=== PATIENT | male | born 1950 | race Caucasian/White ===

== ENCOUNTER 2017-07-12 11:40 | Inpatient (IN) | payer MEDICARE, BC ==
[2017-07-12] MEDS ORDERED: Sodium Chloride 0.9% 10 ML Syringe FLUSH PRN (11:47)
[2017-07-12] MEDS ORDERED: Adenosine 6 MG/2 ML SDV IVPUSH ONE (11:48)
[2017-07-12] MEDS ORDERED: Sodium Chloride 0.9% 1,000 ML IV SCH ×2 (12:00→15:15)
[2017-07-12] MEDS ORDERED: Diltiazem 25 MG/5 ML SDV IVPUSH ONE (12:07)
--- NOTE | 2017-07-12 12:07 | EDM.PDOC ---
ED HPI GENERAL MEDICAL PROBLEM - General Chief Complaint: Chest Pain Stated Complaint: HEART NOT RIGHT/RAPID HEART/SOB Time Seen by Provider: 07/12/17 11:45 Source of Information: Reports: Patient, Old Records History Limitations: Reports: No Limitations - History of Present Illness INITIAL COMMENTS - FREE TEXT/NARRATIVE: 66 yo male with a pHx of paroxysmal afib presents with tachycardia that began about 8 pm last night. He has been going in and out of Afib lately, usually resolves on its own. He is on warfarin with a last INR about a month ago. Has not missed any doses. Take metoprolol for rate control. Has minimal CP and SOB. Onset Date: 07/11/17 Onset Time: 20:00 Duration: Hour(s):, Constant Location: Reports: Chest Quality: Reports: Dull Severity: Mild Improves with: Reports: None Worsens with: Reports: None Context: Reports: Other (PHx of paroxysmal afib) Associated Symptoms: Reports: Chest Pain (very mild), Shortness of Breath (mild) . 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 (see below) (his usual meds only, none missed.) Chest Pain Score (Numeric/FACES): 4 - Related Data Allergies Allergy/AdvReac Type Severity Reaction Status Date / Time No Known Allergies Allergy Verified 07/12/17 11:55 Home Meds: Home Meds Furosemide [Furosemide] 40 mg PO BID 02/03/15 [History] Losartan [Cozaar] 100 mg PO DAILY 02/03/15 [History] Metoprolol Succinate [Toprol XL] 75 mg PO DAILY 02/03/15 [History] Sildenafil [Viagra] 100 mg PO ASDIRECTED PRN 02/03/15 [History] Simvastatin [Zocor] 10 mg PO BEDTIME 02/03/15 [History] Tamsulosin [Tamsulosin 24 Hr] 0.4 mg PO DAILY 02/03/15 [History] Warfarin [Coumadin] 5 mg PO DAILY 02/03/15 [History] Past Medical History HEENT History: Reports: Impaired Vision Cardiovascular History: Reports: Afib, High Cholesterol, Hypertension, SOB on Exertion Other Cardiovascular History: Chronic systolic heart failure, peripheral edema Respiratory History: Reports: Sleep Apnea Other Respiratory History: CPAP Gastrointestinal History: Reports: Colon Polyp Genitourinary History: Reports: BPH Musculoskeletal History: Reports: Fracture, Osteoarthritis Endocrine/Metabolic History: Reports: Obesity/BMI 30+ - Infectious Disease History Infectious Disease History: Reports: Chicken Pox, Measles, Mumps - Past Surgical History HEENT Surgical History: Reports: Adenoidectomy, Tonsillectomy Other HEENT Surgeries/Procedures: Adnoids. Other Cardiovascular Surgeries/Procedures: Ablation 01/08/2015 Respiratory Surgical History: Reports: None GI Surgical History: Reports: Colonoscopy Male Surgical History: Reports: None Endocrine Surgical History: Reports: None Social & Family History - Tobacco Use Smoking Status *Q: Former Smoker Packs/Tins Daily: 0.3 Second Hand Smoke Exposure: No - Caffeine Use Caffeine Use: Reports: None - Alcohol Use Days Per Week of Alcohol Use: 0 Number of Drinks Per Day: 3 Total Drinks Per Week: 0 - Recreational Drug Use Recreational Drug Use: No ED ROS GENERAL - Review of Systems Review Of Systems: See Below Constitutional: Reports: No Symptoms HEENT: Reports: No Symptoms Respiratory: Reports: Shortness of Breath (mild now). Denies: Wheezing, Pleuritic Chest Pain, Cough, Sputum, Hemoptysis Cardiovascular: Reports: Palpitations (since last night) Endocrine: Reports: No Symptoms GI/Abdominal: Reports: No Symptoms : Reports: No Symptoms Musculoskeletal: Reports: No Symptoms Skin: Reports: No Symptoms Neurological: Reports: No Symptoms ED EXAM, GENERAL - Physical Exam Exam: See Below Exam Limited By: No Limitations General Appearance: Alert, WD/WN, No Apparent Distress, Obese Eye Exam: Bilateral Eye: Normal Inspection Ears: Normal External Exam, Normal Canal, Hearing Grossly Normal Ear Exam: Bilateral Ear: Auricle Normal, Canal Normal Nose: Normal Inspection, Normal Mucosa, No Blood Throat/Mouth: Normal Inspection, Normal Lips, Normal Oropharynx, Normal Voice, No Airway Compromise Head: Atraumatic, Normocephalic Neck: Normal Inspection, Supple Respiratory/Chest: No Respiratory Distress, Lungs Clear, Normal Breath Sounds, No Accessory Muscle Use Cardiovascular: Regular Rate, Rhythm, No Edema, Tachycardia GI/Abdominal: Normal Bowel Sounds, Soft, Non-Tender, No Distention Back Exam: Normal Inspection Extremities: Normal Inspection, Normal Range of Motion, Non-Tender, No Pedal Edema Neurological: Alert, Oriented, CN II-XII Intact, Normal Cognition, No Motor/ Sensory Deficits Psychiatric: Normal Affect, Normal Mood Skin Exam: Warm, Dry, Intact, Normal Color, No Rash Lymphatic: No Adenopathy EKG INTERPRETATION EKG Date: 07/12/17 Time: 11:45 Rhythm: A-Fib Rate (Beats/Min): 184 [place]: Normal P-Wave: Present QRS: Normal ST-T: Normal QT: Normal Comparison: Change From Previous EKG Course - Vital Signs Text/Narrative:: Was given Adenocard 6 mg IV with transient slowing revealing his underlying current rhythm is afib. Cardizem 25 mg IV given for rate control, this worked well to control the rate. Less than the full 25 mg was given to achieve this rate control. Last Recorded V/S: Last Vital Signs Temp Pulse 183 H 07/12/17 12:23 Resp BP 132/113 H 07/12/17 12:23 Pulse Ox - Orders/Labs/Meds Orders: Active Orders 24 hr Category Date Time Status Cardiac Monitoring [RC] .As Directed Care 07/12/17 11:46 Active EKG Documentation Completion [RC] ASDIRECTED Care 07/12/17 11:43 Active Oxygen Therapy Adult [Oxygen Therapy, ED] [RC] Care 07/12/17 11:48 Active ASDIRECTED BASIC METABOLIC PANEL,BMP [CHEM] Stat Lab 07/12/17 12:01 Received TROPONIN I [CHEM] Stat Lab 07/12/17 12:01 Received Sodium Chloride 0.9% [Normal Saline] 1,000 ml Med 07/12/17 12:00 Active IV ASDIRECTED Sodium Chloride 0.9% [Saline Flush] Med 07/12/17 11:47 Active 10 ml FLUSH ASDIRECTED PRN Saline Lock Insert [OM.PC] Routine Oth 07/12/17 11:47 Ordered EKG 12 Lead [EK] Routine Ther 07/12/17 11:43 Ordered Medication Orders Sodium Chloride (Normal Saline) 1,000 mls @ 100 mls/hr IV ASDIRECTED BONILLA Last Admin: 07/12/17 12:10 Dose: 100 mls/hr Sodium Chloride (Saline Flush) 10 ml FLUSH ASDIRECTED PRN PRN Reason: Keep Vein Open Labs: Laboratory Tests 07/12/17 07/12/17 Range/Units 12:01 12:01 WBC 13.0 H (4.5-11.0) K/uL RBC 5.15 (4.30-5.90) M/uL Hgb 16.5 H (12.0-15.0) g/dL Hct 48.5 (40.0-54.0) % MCV 94 (80-98) fL MCH 32 H (27-31) pg MCHC 34 (32-36) % Plt Count 333 (150-400) K/uL PT 33.3 H (9.5-12.0) sec INR 2.97 H (0.80-1.20) Meds: Medications Generic Name Dose Route Start Last Admin Trade Name Freq PRN Reason Stop Dose Admin Sodium Chloride 1,000 mls @ 100 mls/hr 07/12/17 12:00 07/12/17 12:10 Normal Saline IV 100 mls/hr ASDIRECTED BONILLA Administration Sodium Chloride 10 ml 07/12/17 11:47 Saline Flush FLUSH ASDIRECTED PRN Keep Vein Open Discontinued Medications Generic Name Dose Route Start Last Admin Trade Name Freq PRN Reason Stop Dose Admin Adenosine 6 mg 07/12/17 11:48 07/12/17 12:12 Adenocard IVPUSH 07/12/17 11:49 6 mg NOW ONE Administration Diltiazem HCl 25 mg 07/12/17 12:07 07/12/17 12:23 Diltiazem IVPUSH 07/12/17 12:08 25 mg ONETIME ONE Administration Departure - Departure Time of Disposition: 12:50 Disposition: Admitted As Inpatient 65 Condition: Fair Clinical Impression: Atrial fibrillation with RVR Referrals: Rob Leal MD [Primary Care Provider] - Forms: ED Department Discharge - My Orders Last 24 Hours: My Active Orders 07/12/17 11:43 EKG Documentation Completion [RC] ASDIRECTED EKG 12 Lead [EK] Routine 07/12/17 11:46 Cardiac Monitoring [RC] .As Directed 07/12/17 11:47 Sodium Chloride 0.9% [Saline Flush] 10 ml FLUSH ASDIRECTED PRN Saline Lock Insert [OM.PC] Routine 07/12/17 11:48 Oxygen Therapy Adult [Oxygen Therapy, ED] [RC] ASDIRECTED 07/12/17 12:00 Sodium Chloride 0.9% [Normal Saline] 1,000 ml IV ASDIRECTED 07/12/17 12:01 BASIC METABOLIC PANEL,BMP [CHEM] Stat TROPONIN I [CHEM] Stat - Assessment/Plan Last 24 Hours: My Active Orders 07/12/17 11:43 EKG Documentation Completion [RC] ASDIRECTED EKG 12 Lead [EK] Routine 07/12/17 11:46 Cardiac Monitoring [RC] .As Directed 07/12/17 11:47 Sodium Chloride 0.9% [Saline Flush] 10 ml FLUSH ASDIRECTED PRN Saline Lock Insert [OM.PC] Routine 07/12/17 11:48 Oxygen Therapy Adult [Oxygen Therapy, ED] [RC] ASDIRECTED 07/12/17 12:00 Sodium Chloride 0.9% [Normal Saline] 1,000 ml IV ASDIRECTED 07/12/17 12:01 BASIC METABOLIC PANEL,BMP [CHEM] Stat TROPONIN I [CHEM] Stat
[2017-07-12] MEDS: Diltiazem 100 MG in Sodium Chloride 0.9% 100 ML IV SCH (12:50)
--- NOTE | 2017-07-12 14:40 | PCM.HP ---
H&P History of Present Illness - General Date of Service: 07/12/17 Admit Problem/Dx: Admission Diagnosis/Problem Admission Diagnosis/Problem Atrial fibrillation with rapid ventricular response Source of Information: Patient, Provider History Limitations: Reports: No Limitations - History of Present Illness Initial Comments - Free Text/Narative: Casimiro presents to the emergency room today with palpitations. He reports that he has not felt well for the past week or so with some fatigue but no real specific symptoms. He has not had any chest pain or chest tightness. Last night he felt like his heart was racing and noticed palpitations. He otherwise felt okay so he did not seek treatment last night. He was able to sleep but when he woke up this morning the palpitations persisted. This morning he also noted some diaphoresis and he was short of breath with any activity. He did not have any chest pain or tightness this morning. He has not had any fevers. He has not noticed any lower extremity edema. He reports compliance with medications and his C Pap therapy for obstructive sleep apnea. His weight has been stable. Workup in the emergency room revealed atrial fibrillation with rapid ventricular response and a rate in the 180s initially. His rate has been slowed using diltiazem. Laboratory studies revealed acute kidney injury with a creatinine of 1.8 as well as a troponin of 0.7. He will be admitted to the intensive care unit for further management. Chest Pain Score (Numeric/FACES): 0 - Related Data Allergies/Adverse Reactions: Allergies Allergy/AdvReac Type Severity Reaction Status Date / Time No Known Allergies Allergy Verified 07/12/17 11:55 Home Medications: Home Meds Furosemide [Furosemide] 40 mg PO BID 02/03/15 [History] Losartan [Cozaar] 100 mg PO DAILY 02/03/15 [History] Metoprolol Succinate [Toprol XL] 75 mg PO DAILY 02/03/15 [History] Sildenafil [Viagra] 100 mg PO ASDIRECTED PRN 02/03/15 [History] Simvastatin [Zocor] 10 mg PO BEDTIME 02/03/15 [History] Tamsulosin [Tamsulosin 24 Hr] 0.4 mg PO DAILY 02/03/15 [History] Warfarin [Coumadin] 5 mg PO DAILY 02/03/15 [History] Past Medical History HEENT History: Reports: Impaired Vision Cardiovascular History: Reports: Afib, High Cholesterol, Hypertension, SOB on Exertion Other Cardiovascular History: Chronic systolic heart failure, peripheral edema Respiratory History: Reports: Sleep Apnea Other Respiratory History: CPAP Gastrointestinal History: Reports: Colon Polyp Genitourinary History: Reports: BPH Musculoskeletal History: Reports: Fracture, Osteoarthritis Endocrine/Metabolic History: Reports: Obesity/BMI 30+ - Infectious Disease History Infectious Disease History: Reports: Chicken Pox, Measles, Mumps - Past Surgical History HEENT Surgical History: Reports: Adenoidectomy, Tonsillectomy Other HEENT Surgeries/Procedures: Adnoids. Other Cardiovascular Surgeries/Procedures: Ablation 01/08/2015 Respiratory Surgical History: Reports: None GI Surgical History: Reports: Colonoscopy Male Surgical History: Reports: None Endocrine Surgical History: Reports: None Social & Family History - Family History Cardiac: Reports: CAD (brother at 79) - Tobacco Use Smoking Status *Q: Never Smoker Packs/Tins Daily: 0.3 Second Hand Smoke Exposure: No - Caffeine Use Caffeine Use: Reports: Coffee, Soda, Tea - Alcohol Use Days Per Week of Alcohol Use: 0 Number of Drinks Per Day: 3 Total Drinks Per Week: 0 - Recreational Drug Use Recreational Drug Use: No H&P Review of Systems - Review of Systems: Review Of Systems: See Below Free Text/Narrative: A complete 12 point review of systems was obtained. Pertinent positives and negatives are noted in the history of present illness. All other systems were reviewed and were negative except as noted. Exam - Exam Exam: See Below - Vital Signs Vital Signs: Last Vital Signs Temp Pulse 94 07/12/17 14:17 Resp 22 H 07/12/17 14:17 BP 125/82 07/12/17 14:17 Pulse Ox 95 07/12/17 14:17 Weight: 136.4 kg - Exam Quality Assessment: No: Supplemental Oxygen General: Alert, Oriented, Cooperative. No: Mild Distress HEENT: Conjunctiva Clear, Mucosa Moist & [place]. No: Scleral Icterus Neck: Supple, Trachea Midline. No: Lymphadenopathy, Thyromegaly Lungs: Clear to Auscultation, Normal Respiratory Effort Cardiovascular: Regular Rate, Irregular Rhythm GI/Abdominal Exam: Soft, Non-Tender, No Distention, Other (obese) Back Exam: Normal Inspection, Full Range of Motion Extremities: No Pedal Edema. No: Joint Swelling, Increased Warmth Skin: Warm, Dry. No: Rash Neuro Extensive - Mental Status: Alert, Oriented x3, Nl Response to Commands Neuro Extensive - Motor, Sensory, Reflexes: CN II-XII Intact. No: Dysarthria, Abnormal Motor, Tremor Psychiatric: Alert, Normal Affect - Patient Data Lab Results Last 24 hrs: Laboratory Results - last 24 hr 07/12/17 07/12/17 07/12/17 Range/Units 12:01 12:01 12:01 WBC 13.0 H (4.5-11.0) K/uL RBC 5.15 (4.30-5.90) M/uL Hgb 16.5 H (12.0-15.0) g/dL Hct 48.5 (40.0-54.0) % MCV 94 (80-98) fL MCH 32 H (27-31) pg MCHC 34 (32-36) % Plt Count 333 (150-400) K/uL PT 33.3 H (9.5-12.0) sec INR 2.97 H (0.80-1.20) Sodium 141 (140-148) mmol/L Potassium 3.5 L (3.6-5.2) mmol/L Chloride 106 (100-108) mmol/L Carbon Dioxide 19 L (21-32) mmol/L Anion Gap 19.5 H (5.0-14.0) mmol/L BUN 28 H (7-18) mg/dL Creatinine 1.8 H (0.8-1.3) mg/dL Est Cr Clr Drug Dosing TNP Estimated GFR (MDRD) 38 L (>60) Glucose 191 H (74-106) mg/dL Calcium 8.7 (8.5-10.1) mg/dL Troponin I 0.763 H* (0.000-0.056) ng/mL Result Diagrams: 07/12/17 12:01 07/12/17 12:01 EKG INTERPRETATION EKG Date: 07/12/17 Rhythm: Other (SVT) Rate (Beats/Min): 185 [place]: Normal P-Wave: Absent QRS: Normal ST-T: Depressed QT: Normal Comparison: Change From Previous EKG EKG Interpretation Comments: images were personally reviewed *Q Meaningful Use (ADM) - VTE *Q VTE Criteria *Q: - VTE Risk Assess *Q Each Risk Factor Represents 1 Point: Obesity ( BMI > 25 kg/m2), Congestive heart failure (CHF) Total Score 1 Point Risk Factors: 2 Each Risk Factor Represents 2 Points: Age 60 - 74 Years Total Score 2 Point Risk Factors: 2 Each Risk Factor Represents 3 Points: None Total Score 3 Point Risk Factors: 0 Each Risk Factor Represents 5 Points: None Total Score 5 Point Risk Factors: 0 Venous Thromboembolism Risk Factor Score *Q: 4 - Stroke *Q Stroke Criteria *Q: - AMI *Q AMI Criteria *Q: - Problem List (1) Atrial fibrillation with RVR SNOMED Code(s): 638547324342327 ICD Code: I48.91 - UNSPECIFIED ATRIAL FIBRILLATION Status: Acute Current Visit: Yes (2) Elevated troponin SNOMED Code(s): 693971309 ICD Code: R74.8 - ABNORMAL LEVELS OF OTHER SERUM ENZYMES Status: Acute Current Visit: Yes (3) Acute kidney injury SNOMED Code(s): 22524257 ICD Code: N17.9 - ACUTE KIDNEY FAILURE, UNSPECIFIED Status: Acute Current Visit: Yes (4) Systolic CHF, chronic SNOMED Code(s): 311875817 ICD Code: I50.22 - CHRONIC SYSTOLIC (CONGESTIVE) HEART FAILURE Status: Chronic Current Visit: Yes (5) MELISSA (obstructive sleep apnea) SNOMED Code(s): 01103669 ICD Code: G47.33 - OBSTRUCTIVE SLEEP APNEA (ADULT) (PEDIATRIC) Status: Chronic Current Visit: Yes (6) Obesity, morbid, BMI 40.0-49.9 SNOMED Code(s): 082898530 ICD Code: E66.01 - MORBID (SEVERE) OBESITY DUE TO EXCESS CALORIES Status: Chronic Current Visit: Yes Problem List Initiated/Reviewed/Updated: Yes Orders Last 24hrs: Active Orders 24 hr Category Date Time Status Patient Status Manage Transfer [TRANSFER] Routine ADT 07/12/17 14:28 Ordered Cardiac Monitoring [RC] .As Directed Care 07/12/17 11:46 Active EKG Documentation Completion [RC] ASDIRECTED Care 07/12/17 11:43 Active EKG Documentation Completion [RC] ASDIRECTED Care 07/12/17 13:57 Active Oxygen Therapy Adult [Oxygen Therapy, ED] [RC] Care 07/12/17 11:48 Active ASDIRECTED Diltiazem [Cardizem] 100 mg Med 07/12/17 12:45 Active Sodium Chloride 0.9% [Normal Saline] 100 ml IV TITRATE Sodium Chloride 0.9% [Normal Saline] 1,000 ml Med 07/12/17 12:00 Active IV ASDIRECTED Sodium Chloride 0.9% [Saline Flush] Med 07/12/17 11:47 Active 10 ml FLUSH ASDIRECTED PRN Saline Lock Insert [OM.PC] Routine Oth 07/12/17 11:47 Ordered Resuscitation Status Routine Resus Stat 07/12/17 14:30 Ordered EKG 12 Lead [EK] Routine Ther 07/12/17 11:43 Ordered EKG 12 Lead [EK] Routine Ther 07/12/17 13:56 Ordered Medication Orders Sodium Chloride (Normal Saline) 1,000 mls @ 100 mls/hr IV ASDIRECTED BONILLA Last Admin: 07/12/17 12:10 Dose: 100 mls/hr Diltiazem HCl 100 mg/ Sodium (Chloride) 100 mls @ 5 mls/hr IV TITRATE BONILLA; 5 MG /HR PRN Reason: Protocol Last Admin: 07/12/17 12:50 Dose: 5 mg/hr, 5 mls/hr Sodium Chloride (Saline Flush) 10 ml FLUSH ASDIRECTED PRN PRN Reason: Keep Vein Open Last Admin: 07/12/17 13:52 Dose: 10 ml Assessment/Plan Comment:: ASSESSMENT AND PLAN - Paroxysmal atrial fibrillation with rapid ventricular response - history of ablation approximately 1.5 years ago. It sounds like he may have had stuttering symptoms over the past week with more impressive symptoms last night. He is chronically anticoagulated and his INR is therapeutic. Rate has slowed with diltiazem infusion. Exact cause for the atrial fibrillation exacerbation is not entirely clear though there is some concern for ischemic heart disease with elevated troponin level as discussed below. -Continue diltiazem infusion -Cardiac monitoring -Continue metoprolol succinate -Continue anticoagulation Elevated troponin - when coupled with his acute kidney injury this could be a demand ischemia-type picture though the level is elevated higher than would expect. He does not have any chest pain or anginal symptoms. EKG shows nonspecific T-wave changes but no elevations or depressions. Case was discussed with the on-call master deputy sheriff court security in [place] and they recommended serial troponins as well as stress testing. -Serial troponin levels -Stress test in the morning -continue beta segundo -aspirin Acute kidney injury - creatinine currently 1.8 with baseline of 1.0. Exact cause for decreased function is not clear but poor perfusion in the setting of tachycardia could be considered. -Repeat labs tomorrow after rate slowing Obstructive sleep apnea - patient reports compliance to CPAP. -Continue C Pap Maintenance issues - - DVT prophylaxis - warfarin - GI prophylaxis - not indicated - Nutrition - heart healthy diet - Vill[place] catheter - not indicated CODE STATUS - patient wishes to be full code at this time Admission justification - This patient will be admitted for inpatient services and is medically appropriate meeting medical necessity for inpatient admission as outlined in my documentation. I reasonably expect the patient will require inpatient services that span a period time over 2 midnights. I reasonably expect this patient to be discharged or transferred within 96 hours [facility]. Disposition - anticipate discharge to home after the hospital stay unless he requires transfer to a higher level of care Primary care physician - Dr. Elvis Ruffin M.D.
[2017-07-12] MEDS ORDERED: Acetaminophen 325 MG Tab PO PRN (15:15)
[2017-07-12] MEDS ORDERED: Ondansetron 4 MG Tab.DIS PO PRN (15:15)
[2017-07-12] MEDS ORDERED: Aspirin 81 MG Tab.Chew PO ONE (15:45)
[2017-07-12] MEDS: Magnesium Sulfate/Water 2 GM in Premix Bag 1 BAG IV SCH ×2 (16:10→21:02)
[2017-07-12] MEDS: Simvastatin 20 MG Tab PO SCH (21:01)
[2017-07-13] MEDS: Diltiazem 100 MG in Sodium Chloride 0.9% 100 ML IV SCH ×2 (07:19→17:24)
[2017-07-13] MEDS: Aspirin 81 MG Tab.Chew PO SCH (10:45)
[2017-07-13] MEDS: Losartan 50 MG Tab PO SCH (10:45)
[2017-07-13] MEDS: Tamsulosin 0.4 MG Cap.ER PO SCH (10:45)
[2017-07-13] MEDS: Metoprolol Succinate 25 MG Tab.ER PO SCH (10:46)
--- NOTE | 2017-07-13 12:47 | NM ---
Myocardial Perf Spect Multi INDICATION: elevated troponin COMPARISON: None. TECHNIQUE: [employer] [facility] medicine Cardiolite scan was performed utilizing 36.0 millicuries uptake technetium 99m sestamibi at stress and 13.1 millicuries of technetium 99m at rest. FINDINGS: The left ventricular myocardium demonstrates homogeneous radiotracer uptake. Wall motion st udies are within normal limits. Calculated left ventricular ejection fraction measures 76% at stress and 69% at rest. IMPRESSION: 1. Normal Cardiolite study.
[2017-07-13] MEDS: Warfarin 5 MG Tab PO SCH (13:37)
--- NOTE | 2017-07-13 15:36 | PCM.PN ---
- General Info Date of Service: 07/13/17 Functional Status: Reports: Pain Controlled, Tolerating Diet - Review of Systems Cardiovascular: Denies: Chest Pain Systems Review Comment:: no acute events overnight. Patient has remained in atrial fibrillation but heart rate has been controlled in the 90s. No complaints of chest pain or shortness of breath overnight. No fevers. He did have an episode this morning where his heart rate shot up to greater than 180 while he was up and moving around. This responded well to sitting back down. Stress test this morning was normal. - Patient Data Vitals - Most Recent: Last Vital Signs Temp 36.6 C 07/13/17 07:32 Pulse 96 07/13/17 15:00 Resp 24 H 07/13/17 15:00 BP 150/26 H 07/13/17 15:00 Pulse Ox 91 L 07/13/17 15:00 Weight - Most Recent: 136.4 kg I&O - Last 24 Hours: Intake & Output 07/13/17 07/13/17 07/13/17 06:59 14:59 22:59 Intake Total 863 720 Output Total 450 150 Balance 413 570 Lab Results Last 24 Hours: Laboratory Results - last 24 hr 07/12/17 07/12/17 07/13/17 Range/Units 16:00 19:02 04:40 WBC 10.1 (4.5-11.0) K/uL RBC 4.62 (4.30-5.90) M/uL Hgb 14.6 (12.0-15.0) g/dL Hct 43.7 (40.0-54.0) % MCV 95 (80-98) fL MCH 32 H (27-31) pg MCHC 33 (32-36) % Plt Count 222 (150-400) K/uL PT (9.5-12.0) sec INR (0.80-1.20) Sodium (140-148) mmol/L Potassium (3.6-5.2) mmol/L Chloride (100-108) mmol/L Carbon Dioxide (21-32) mmol/L Anion Gap (5.0-14.0) mmol/L BUN (7-18) mg/dL Creatinine (0.8-1.3) mg/dL Est Cr Clr Drug Dosing mL/min Estimated GFR (MDRD) (>60) Glucose (74-106) mg/dL Calcium (8.5-10.1) mg/dL Troponin I 0.792 H* 1.012 H* (0.000-0.056) ng/mL 07/13/17 07/13/17 Range/Units 04:40 04:40 WBC (4.5-11.0) K/uL RBC (4.30-5.90) M/uL Hgb (12.0-15.0) g/dL Hct (40.0-54.0) % MCV (80-98) fL MCH (27-31) pg MCHC (32-36) % Plt Count (150-400) K/uL PT 32.0 H (9.5-12.0) sec INR 2.86 H (0.80-1.20) Sodium 140 (140-148) mmol/L Potassium 3.2 L (3.6-5.2) mmol/L Chloride 105 (100-108) mmol/L Carbon Dioxide 25 (21-32) mmol/L Anion Gap 13.2 (5.0-14.0) mmol/L BUN 25 H (7-18) mg/dL Creatinine 1.2 (0.8-1.3) mg/dL Est Cr Clr Drug Dosing 57.79 mL/min Estimated GFR (MDRD) > 60 (>60) Glucose 146 H (74-106) mg/dL Calcium 8.6 (8.5-10.1) mg/dL Troponin I 0.799 H* (0.000-0.056) ng/mL Med Orders - Current: Current Medications Acetaminophen (Tylenol) 650 mg PO Q4H PRN PRN Reason: Pain (Mild 1-3)/fever Aspirin (Aspirin) 81 mg PO DAILY [facility] Last Admin: 07/13/17 10:45 Dose: 81 mg Diltiazem HCl 100 mg/ Sodium (Chloride) 100 mls @ 5 mls/hr IV TITRATE [facility]; 5 MG /HR PRN Reason: Protocol Last Titration: 07/13/17 08:26 Dose: 10 mg/hr, 10 mls/hr Sodium Chloride (Normal Saline) 1,000 mls @ 25 mls/hr IV ASDIRECTED [facility] Losartan Potassium (Cozaar) 100 mg PO DAILY [facility] Last Admin: 07/13/17 10:45 Dose: 100 mg Metoprolol Succinate (Toprol Xl) 75 mg PO DAILY [facility] Last Admin: 07/13/17 10:46 Dose: 75 mg Ondansetron HCl (Zofran Odt) 4 mg PO Q6H PRN PRN Reason: Nausea able to take PO Simvastatin (Zocor) 10 mg PO BEDTIME [facility] Last Admin: 07/12/17 21:01 Dose: 10 mg Sodium Chloride (Saline Flush) 10 ml FLUSH ASDIRECTED PRN PRN Reason: Keep Vein Open Last Admin: 07/12/17 13:52 Dose: 10 ml Tamsulosin HCl (Flomax) 0.4 mg PO DAILY [facility] Last Admin: 07/13/17 10:45 Dose: 0.4 mg Warfarin Sodium (Coumadin) 5 mg PO DAILY@1300 [facility] Last Admin: 07/13/17 13:37 Dose: 5 mg Discontinued Medications Adenosine (Adenocard) 6 mg IVPUSH NOW ONE Stop: 07/12/17 11:49 Last Admin: 07/12/17 12:12 Dose: 6 mg Aspirin (Aspirin) 324 mg PO ONETIME ONE Stop: 07/12/17 15:46 Last Admin: 07/12/17 16:10 Dose: 324 mg Diltiazem HCl (Diltiazem) 25 mg IVPUSH ONETIME ONE Stop: 07/12/17 12:08 Last Admin: 07/12/17 12:23 Dose: 10 mg Sodium Chloride (Normal Saline) 1,000 mls @ 100 mls/hr IV ASDIRECTED [facility] Last Admin: 07/12/17 12:10 Dose: 100 mls/hr Magnesium Sulfate 2 gm/ Premix 50 mls @ 12.5 mls/hr IV Q6H [facility] Stop: 07/13/17 01:59 Last Admin: 07/12/17 21:02 Dose: 12.5 mls/hr Regadenoson (Lexiscan) 0.4 mg IVPUSH ONETIME ONE Stop: 07/13/17 09:40 Last Admin: 07/13/17 09:51 Dose: 0.4 mg - Exam Quality Assessment: No: Supplemental Oxygen General: Alert, Oriented, Cooperative, No Acute Distress Neck: Supple Lungs: Normal Respiratory Effort Cardiovascular: Regular Rate, Irregular Rhythm Extremities: No Pedal Edema Psy/Mental Status: Alert, Normal Affect - Problem List & Annotations (1) Atrial fibrillation with RVR SNOMED Code(s): 849094934267548 Code(s): I48.91 - UNSPECIFIED ATRIAL FIBRILLATION Status: Acute Current Visit: Yes (2) Elevated troponin SNOMED Code(s): 640354303 Code(s): R74.8 - ABNORMAL LEVELS OF OTHER SERUM ENZYMES Status: Acute Current Visit: Yes (3) Acute kidney injury SNOMED Code(s): 45156052 Code(s): N17.9 - ACUTE KIDNEY FAILURE, UNSPECIFIED Status: Acute Current Visit: Yes (4) Systolic CHF, chronic SNOMED Code(s): 101476847 Code(s): I50.22 - CHRONIC SYSTOLIC (CONGESTIVE) HEART FAILURE Status: Chronic Current Visit: No (5) MELISSA (obstructive sleep apnea) SNOMED Code(s): 40350229 Code(s): G47.33 - OBSTRUCTIVE SLEEP APNEA (ADULT) (PEDIATRIC) Status: Chronic Current Visit: No (6) Obesity, morbid, BMI 40.0-49.9 SNOMED Code(s): 425104343 Code(s): E66.01 - MORBID (SEVERE) OBESITY DUE TO EXCESS CALORIES Status: Chronic Current Visit: No - Problem List Review Problem List Initiated/Reviewed/Updated: Yes - My Orders Last 24 Hours: My Active Orders 07/12/17 15:15 Patient Status [ADT] Routine Bedrest Bedside Commode [RC] ASDIRECTED Cardiac Monitoring [RC] Q6H Intake and Output [RC] QSHIFT Notify Provider Vital Signs [RC] ASDIRECTED Oxygen Therapy [RC] .PRN VTE/DVT Education [RC] Per Unit Routine Vital Signs [RC] Q2H Acetaminophen [Tylenol] 650 mg PO Q4H PRN Ondansetron [Zofran ODT] 4 mg PO Q6H PRN Sodium Chloride 0.9% [Normal Saline] 1,000 ml IV ASDIRECTED 07/12/17 Dinner Heart Healthy Diet [DIET] 07/13/17 07:00 Echo Comp wo Cont [US] Routine 07/13/17 08:18 EKG Documentation Completion [RC] ASDIRECTED EKG 12 Lead [EK] Urgent 07/13/17 09:00 Aspirin 81 mg PO DAILY 07/13/17 15:32 Potassium Chloride [Klor-Con M20] 40 meq PO ONETIME ONE 07/14/17 05:00 BASIC METABOLIC PANEL,BMP [CHEM] Timed TROPONIN I [CHEM] Timed 07/14/17 Breakfast NPO After Midnight [Nothing per Oral After Midnight Diet] [DIET] - Plan Plan:: ASSESSMENT AND PLAN - Paroxysmal atrial fibrillation with rapid ventricular response - stress test normal. Volume status appears appropriate. Echocardiogram difficult to interpret with poor image quality. No obvious trigger for his atrial fibrillation. -Continue diltiazem infusion, titrate as needed -Cardiac monitoring -Continue metoprolol succinate -Continue anticoagulation -plan for cardioversion in the morning Elevated troponin - likely demand ischemia with significant tachycardia. Stress test unremarkable. -repeat troponin in the morning -continue beta segundo -aspirin Acute kidney injury - kidney function improving with rate slowing alone and is nearly back to baseline. -Repeat labs tomorrow morning Obstructive sleep apnea - patient reports compliance to CPAP. -Continue C Pap Maintenance issues - - DVT prophylaxis - warfarin - GI prophylaxis - not indicated - Nutrition - heart healthy diet Disposition - anticipate discharge to home after the hospital stay Primary care physician - Dr. Elvis Ruffin M.D.
[2017-07-13] MEDS ORDERED: Potassium Chloride 20 MEQ Tab.ER PO ONE (16:00)
[2017-07-13] MEDS: Simvastatin 20 MG Tab PO SCH (20:34)
[2017-07-14] MEDS: Diltiazem 100 MG in Sodium Chloride 0.9% 100 ML IV SCH ×2 (00:46→07:53)
[2017-07-14] MEDS: Losartan 50 MG Tab PO SCH (08:25)
[2017-07-14] MEDS: Aspirin 81 MG Tab.Chew PO SCH (08:25)
[2017-07-14] MEDS: Tamsulosin 0.4 MG Cap.ER PO SCH (08:27)
[2017-07-14] MEDS: Metoprolol Succinate 25 MG Tab.ER PO SCH (08:27)
[2017-07-14] MEDS ORDERED: Propofol 200 MG/20 ML SDV ONE (09:55)
--- NOTE | 2017-07-14 10:53 | PCM.PRNOTE ---
- Free Text/Narrative Note: Date of service: 07/14/2017 Proposed procedure: synchronized cardioversion Preprocedure diagnosis: paroxysmal atrial fibrillation Post procedure diagnosis: paroxysmal atrial fibrillation Indication for procedure: Casimiro was evaluated today for management atrial fibrillation with rapid ventricular response. Synchronized cardioversion was recommended as a primary treatment. Description of the procedure: Casimiro is currently located in ICU room 124. We have reviewed the potential risks of electrical cardioversion including but not limited to: Superficial skin meza, ineffective treatment, other arrhythmias, reaction to anesthesia medications or potentially asystole. The benefits of the procedure have also been reviewed. At this time the patient wishes to proceed with electrical cardioversion. All necessary pre-procedure information and paperwork has been provided and completed, respectively. The patient was connected to cardioversion pads and monitoring equipment per protocol. Prior to the procedure, a timeout was held with nursing and anesthesia present to confirm the right patient and right procedure. Once appropriate anesthesia was applied the machine was charged to 200 Joules and a synchronized electrical shock was applied. The patient was successfully converted to normal sinus rhythm based on telemetry monitoring. Casimiro will remain in the intensive care unit for the next several hours to ensure that he remains in sinus rhythm. Anticoagulation should be continued for at least one month post cardioversion. There were no immediate complications noted from the procedure. Post procedure EKG is pending at the time of dictation. Bimal Ruffin M.D.
[2017-07-14] MEDS: Warfarin 5 MG Tab PO SCH (13:19)
--- NOTE | 2017-07-14 14:56 | PCM.DCSUM1 ---
Discharge Summary - Hospital Course Brief History: 66-year-old male with history of sleep apnea and paroxysmal atrial fibrillation who presented with both dictations and dyspnea. Workup in the emergency room revealed atrial fibrillation with rapid ventricular response and a mildly elevated troponin. He was admitted for further workup and management. - Discharge Data Discharge Date: 07/14/17 Discharge Disposition: Home, Self-Care 01 Condition: Good - Discharge Diagnosis/Problem(s) (1) Atrial fibrillation with RVR SNOMED Code(s): 443335493394566 ICD Code: I48.91 - UNSPECIFIED ATRIAL FIBRILLATION Status: Acute (2) Elevated troponin SNOMED Code(s): 289421560, 411751717 ICD Code: R74.8 - ABNORMAL LEVELS OF OTHER SERUM ENZYMES Status: Acute (3) Acute kidney injury SNOMED Code(s): 00272750 ICD Code: N17.9 - ACUTE KIDNEY FAILURE, UNSPECIFIED Status: Acute (4) Systolic CHF, chronic SNOMED Code(s): 295267118 ICD Code: I50.22 - CHRONIC SYSTOLIC (CONGESTIVE) HEART FAILURE Status: Chronic (5) MELISSA (obstructive sleep apnea) SNOMED Code(s): 57751791 ICD Code: G47.33 - OBSTRUCTIVE SLEEP APNEA (ADULT) (PEDIATRIC) Status: Chronic (6) Obesity, morbid, BMI 40.0-49.9 SNOMED Code(s): 970153737 ICD Code: E66.01 - MORBID (SEVERE) OBESITY DUE TO EXCESS CALORIES Status: Chronic - Patient Summary/Data Operative Procedure(s) Performed: Synchronized cardioversion by Dr. Ruffin [facility] Course: Casimiro presented to the emergency room with palpitations and dyspnea. Workup in the emergency room revealed a significant tachycardia that initially appeared to be regular SVT but after injection of adenosine atrial fibrillation was revealed. Heart rate did slow down with diltiazem and he was started on a diltiazem infusion in the emergency room. Laboratory workup revealed an acute kidney injury with creatinine of 1.8 and a baseline of 1. He also had a troponin of 0.7. His care was discussed with the clipping marker in [place] and they recommended serial troponin levels, atrial fibrillation management and a stress test prior to transfer for any sort of percutaneous intervention. Overnight he remained stable on the diltiazem infusion with excellent rate control and stable blood pressures. He did not have any symptoms of chest pain or chest pressure in the emergency room or overnight. His second troponin level was stable at around 0.7 and then juan r to 1 before declining in the morning after admission. The morning after admission he remained symptom-free and stable so we elected to perform a Karolyn scan stress test. Both the EKG and the nuclear medicine portions of the test were unremarkable for ischemia. After the stress test was completed we discussed potential management options including rate control versus rhythm control. We did also obtain an echocardiogram which was difficult to interpret because of his body habitus but appeared to have a normal ejection fraction. No significant valvular abnormalities were noted though again the images were not of good quality. After further discussion we elected to proceed with cardioversion and an attempt at rhythm control because no strong cause for his atrial fibrillation was identified. He had been compliant with this CPAP. I suspect that his troponin elevation though moderate in quantity was probably a result of his tachycardia that had persisted for more than 12 hours. On the morning of discharge he had a synchronized cardioversion with a single shock and returned to a sinus rhythm. He has remained in that sinus rhythm throughout the course of the day. I have elected to send him home with a small dose of diltiazem to see if we can avoid future difficulties of this paroxysmal atrial fibrillation. He would benefit from early clinic follow-up and potentially a visit to the cl[facility] after hospital discharge. He is chronically anticoagulated and his INR has been therapeutic. He will continue his anti-coagulation after hospital discharge. - Patient Instructions Diet: Heart Healthy Diet Activity: As Tolerated, No Strenuous Activities (relax over the weekend) Showering/Bathing: May Shower Notify Provider of: Fever, Increased Pain, Nausea and/or Vomiting Other/Special Instructions: 1. You were in the hospital for management of atrial fibrillation with a rapid ventricular response. Your heart rate was slowed down using medication and then returned to a normal sinus rhythm using electrical cardioversion. We did perform a stress test to look for evidence that you had coronary artery blockages because of your elevated troponin level. Fortunately the stress test did not show evidence for blockage. I recommend that you continue to take a low dose of diltiazem once daily to help reduce the risk of having a recurrence of the atrial fibrillation. 2. Please continue your other medications as previously prescribed. 3. Follow-up with the Coumadin clinic as previously scheduled. 4. Seek medical attention if you develop sudden onset of shortness of breath, palpitations or chest pain/ pressure. - Discharge Plan Prescriptions/Med Rec: Diltiazem HCl [Diltiazem 24Hr Cd] 120 mg PO DAILY #30 cap.er.24h Home Medications: Home Meds Furosemide 40 mg PO BID 02/03/15 [History] Losartan [Cozaar] 100 mg PO DAILY 02/03/15 [History] Metoprolol Succinate [Toprol XL] 75 mg PO DAILY 02/03/15 [History] Sildenafil [Viagra] 100 mg PO ASDIRECTED PRN 02/03/15 [History] Simvastatin [Zocor] 10 mg PO BEDTIME 02/03/15 [History] Tamsulosin [Flomax] 0.4 mg PO DAILY 02/03/15 [History] Warfarin [Coumadin] 5 mg PO DAILY 02/03/15 [History] Diltiazem HCl [Diltiazem 24Hr Cd] 120 mg PO DAILY #30 cap.er.24h 07/14/17 [Rx] Patient Handouts: Diltiazem extended-release capsules or tablets, Atrial Fibrillation Referrals: Rob Leal MD [Primary Care Provider] - (f/u as needed if symptoms return or do not continue to get better) - Discharge Summary/Plan Comment DC Time >30 min.: No (25) - Patient Data Vitals - Most Recent: Last Vital Signs Temp 37.3 C 07/13/17 19:00 Pulse 53 L 07/14/17 12:00 Resp 21 H 07/14/17 12:00 BP 121/71 07/14/17 12:00 Pulse Ox 94 L 07/14/17 12:00 Weight - Most Recent: 136.4 kg I&O - Last 24 hours: Intake & Output 07/13/17 07/14/17 07/14/17 22:59 06:59 14:59 Intake Total 385 990 Output Total 350 Balance 385 640 Lab Results - Last 24 hrs: Laboratory Results - last 24 hr 07/14/17 Range/Units 04:30 Sodium 142 (140-148) mmol/L Potassium 3.7 (3.6-5.2) mmol/L Chloride 108 (100-108) mmol/L Carbon Dioxide 26 (21-32) mmol/L Anion Gap 7.7 (5.0-14.0) mmol/L BUN 20 H (7-18) mg/dL Creatinine 1.1 (0.8-1.3) mg/dL Est Cr Clr Drug Dosing 63.28 mL/min Estimated GFR (MDRD) > 60 (>60) Glucose 134 H (74-106) mg/dL Calcium 8.5 (8.5-10.1) mg/dL Troponin I 0.411 H* (0.000-0.056) ng/mL Med Orders - Current: Current Medications Acetaminophen (Tylenol) 650 mg PO Q4H PRN PRN Reason: Pain (Mild 1-3)/fever Aspirin (Aspirin) 81 mg PO DAILY [facility] Last Admin: 07/14/17 08:25 Dose: 81 mg Diltiazem HCl (Cardizem Cd) 120 mg PO ONETIME ONE Stop: 07/14/17 15:01 Diltiazem HCl 100 mg/ Sodium (Chloride) 100 mls @ 5 mls/hr IV TITRATE [facility]; 5 MG /HR PRN Reason: Protocol Last Titration: 07/14/17 08:24 Dose: 5 mg/hr, 5 mls/hr Sodium Chloride (Normal Saline) 1,000 mls @ 25 mls/hr IV ASDIRECTED [facility] Last Admin: 07/13/17 17:24 Dose: 25 mls/hr Losartan Potassium (Cozaar) 100 mg PO DAILY [facility] Last Admin: 07/14/17 08:25 Dose: 100 mg Metoprolol Succinate (Toprol Xl) 75 mg PO DAILY [facility] Last Admin: 07/14/17 08:27 Dose: 75 mg Ondansetron HCl (Zofran Odt) 4 mg PO Q6H PRN PRN Reason: Nausea able to take PO Simvastatin (Zocor) 10 mg PO BEDTIME [facility] Last Admin: 07/13/17 20:34 Dose: 10 mg Sodium Chloride (Saline Flush) 10 ml FLUSH ASDIRECTED PRN PRN Reason: Keep Vein Open Last Admin: 07/12/17 13:52 Dose: 10 ml Tamsulosin HCl (Flomax) 0.4 mg PO DAILY [facility] Last Admin: 07/14/17 08:27 Dose: 0.4 mg Warfarin Sodium (Coumadin) 5 mg PO DAILY@1300 [facility] Last Admin: 07/14/17 13:19 Dose: 5 mg Discontinued Medications Adenosine (Adenocard) 6 mg IVPUSH NOW ONE Stop: 07/12/17 11:49 Last Admin: 07/12/17 12:12 Dose: 6 mg Aspirin (Aspirin) 324 mg PO ONETIME ONE Stop: 07/12/17 15:46 Last Admin: 07/12/17 16:10 Dose: 324 mg Diltiazem HCl (Diltiazem) 25 mg IVPUSH ONETIME ONE Stop: 07/12/17 12:08 Last Admin: 07/12/17 12:23 Dose: 10 mg Sodium Chloride (Normal Saline) 1,000 mls @ 100 mls/hr IV ASDIRECTED [facility] Last Admin: 07/12/17 12:10 Dose: 100 mls/hr Magnesium Sulfate 2 gm/ Premix 50 mls @ 12.5 mls/hr IV Q6H [facility] Stop: 07/13/17 01:59 Last Admin: 07/12/17 21:02 Dose: 12.5 mls/hr Potassium Chloride (Klor-Con M20) 40 meq PO ONETIME ONE Stop: 07/13/17 16:01 Last Admin: 07/13/17 17:16 Dose: 40 meq Propofol (Diprivan 20 Ml) Confirm Administered Dose 200 mg .ROUTE .STK-MED ONE Stop: 07/14/17 09:56 Regadenoson (Lexiscan) 0.4 mg IVPUSH ONETIME ONE Stop: 07/13/17 09:40 Last Admin: 07/13/17 09:51 Dose: 0.4 mg *Q Meaningful Use (DIS) - VTE *Q VTE Criteria *Q: - Stroke *Q Stroke Criteria *Q: - AMI *Q AMI Criteria *Q:
[2017-07-14] MEDS ORDERED: Diltiazem 120 MG Cap.CD PO ONE (15:00)
[2017-07-14 15:08] VITALS: BP 122/80
--- NOTE | 2017-07-15 00:38 | STRESS ---
DATE OF SERVICE: 07/13/2017 PROPOSED PROCEDURE: Lexiscan stress test. INDICATION FOR STRESS TEST: Atrial fibrillation and elevated troponin level. REFERRING PHYSICIAN: Dr. Bimal Ruffin. PRIMARY CARE PHYSICIAN: Dr. Rob Leal. DESCRIPTION OF PROCEDURE: Casimiro is a 66-year-old male, who is transferred from the intensive care unit to the stress testing area for Lexiscan stress test to further evaluate an elevated troponin level. Preprocedure his blood pressure is 129/87 and his pulse is 94. The stress test was administered per the protocol. Review of the continuous EKG monitoring showed no significant changes in the ST segments or the T-waves other than possibly some mild inferior inversion. His vital signs were stable during the course of the stress test. He did not have a rise or drop in his blood pressure and his heart rate remained stable in the upper 90s. Review of the sales and service technician's notes suggested that he had headache and some upset stomach after injection of the Lexiscan, but did not have any chest pain or chest pressure. IMPRESSION: Negative EKG portion of the stress test with the nuclear medicine portion to be interpreted separately. Bimal Ruffin MD /[id number]
--- NOTE | 2017-07-17 08:28 | ANES ---
DATE OF SERVICE: 07/14/2017 TIME: 1030 hours. INDICATIONS: I was called by Dr. Bimal Ruffin to the emergency room to evaluate Mr. Almaraz for cardioversion. He has not eaten at all today and is in atrial fibrillation. He was placed with oxygen at 6 L per minute. I gave him 100 mg IV propofol, and they cardioverted him with synchronized cardioversion with 200 joules, and he converted x1. He tolerated the procedure very nicely. His vital signs remained stable throughout procedure. No anesthesia complications were noted. Parveen Rueda CRNA /[id number]
== END 2017-07-14 15:25 | disposition home or self-care (01) | DRG 309 ==
LOC: JP.ED 11:40 → JP.ICU 14:28
PROVIDERS: ADMIT Internal Medicine; ATTEND Internal Medicine
PROC: 5A2204Z Restoration of Cardiac Rhythm, Single (ICD-10-PCS; principal; 2017-07-14)
DX: I48.0 Paroxysmal atrial fibrillation (principal); I50.22 Chronic systolic (congestive) heart failure; N17.9 Acute kidney failure, unspecified; Z68.42 Body mass index [BMI] 45.0-49.9, adult; Z79.01 Long term (current) use of anticoagulants; I11.0 Hypertensive heart disease with heart failure; R74.8 Abnormal levels of other serum enzymes; Z87.891 Personal history of nicotine dependence; E66.01 Morbid (severe) obesity due to excess calories; E78.00 Pure hypercholesterolemia, unspecified; G47.33 Obstructive sleep apnea (adult) (pediatric); M19.90 Unspecified osteoarthritis, unspecified site; H54.7 Unspecified visual loss; N40.0 Benign prostatic hyperplasia without lower urinary tract symptoms
CPT/HCPCS: 36415; 80048; 84484; 85027; 85610; 93005 ×2; 96361; 96365; 96366; 96375; 96376; 99285; J0153; J3490 ×2; J7030; J7040; J7050; 78452; 78452-26; 83735; 93010; 93017; 93306; A9270-GY; A9500; J2704; J2785; J3475

== ENCOUNTER 2018-01-10 10:46 | Day surgery (SDC) | payer MEDICARE, BC ==
[2018-01-10] MEDS ORDERED: Propofol 200 MG/20 ML SDV ONE (11:15)
[2018-01-10] MEDS ORDERED: fentaNYL 100 MCG/2 ML SDV ONE (11:15)
[2018-01-10] MEDS ORDERED: Lactated Ringers 1,000 ML IV SCH (11:15)
[2018-01-10] MEDS ORDERED: Midazolam 1 MG/ML 2 ML SDV ONE (11:16)
[2018-01-10 13:28] VITALS: BP 140/75
--- NOTE | 2018-01-11 08:10 | OR ---
DATE OF PROCEDURE: 01/10/2018 PREOPERATIVE DIAGNOSIS: History of adenomatous colon polyps. POSTOPERATIVE DIAGNOSES: 1. Diverticulosis. 2. Two moderately-sized colon polyps. 3. History of adenomatous colon polyps. PROCEDURES: Colonoscopy to the cecum with biopsy and then snare cautery polypectomy of a transverse colon polyp and a right colon polyp. SURGEON: Jan Rico MD. ANESTHESIA: IV anesthesia with monitored anesthesia care. INDICATION: This 67-year-old white male is here for a colonoscopy because of a history of adenomatous colon polyps. His last colonoscopic exam he says was done about a year and a half ago. I counseled him for the procedure including risks and alternatives , and he gave his informed consent to proceed. DESCRIPTION OF PROCEDURE: The patient was placed in the left lateral decubitus position. IV anesthesia was administered by the Anesthesia Service. Time-out was held. A rectal exam was performed, which showed no masses. The flexible video Olympus colonoscope was introduced through his anus, up his rectum, and out his colon all the way to the cecum. En route, we saw multiple left-sided diverticula. There was no bleeding or inflammation associated with them. Additionally, en route to the cecum, we saw a moderately- sized transverse colon polyp and a moderately-sized right colon polyp. These were both initially biopsied and then each were removed with a snare. The snare involved placing the snare about its base, elevating up away from the bowel wall and applying electrocautery as it was amputated. The right colon polyp was aspirated through the scope and captured in a polyp trap. Once the cecum was reached, the scope was slowly withdrawn, examining the mucosa throughout. No additional mucosal abnormalities were noted. The scope was retroflexed in the rectum with the distal rectum appearing unremarkable. The scope was straightened and removed. He tolerated the procedure well. Jan Rico MD /[id number]
== END 2018-01-10 13:40 | disposition home or self-care (01) ==
LOC: JP.SDS 10:46
PROVIDERS: ATTEND Surgery
DX: Z12.11 Encounter for screening for malignant neoplasm of colon (principal); D12.3 Benign neoplasm of transverse colon; D12.2 Benign neoplasm of ascending colon; K57.30 Diverticulosis of large intestine without perforation or abscess without bleeding; I10 Essential (primary) hypertension; G47.33 Obstructive sleep apnea (adult) (pediatric); Z86.010 Personal history of colon polyps
CPT/HCPCS: 45385; 88305; J2250; J2704; J3010; J7120

== ENCOUNTER 2021-08-13 14:00 | Emergency (ER) | payer MEDICARE, BC ==
[2021-08-13 15:07] LABS: CORONAVIRUS COVID-19 NAA NEGATIVE (NEGATIVE)
[2021-08-13] MEDS ORDERED: Lactated Ringers 1,000 ML IV ONE (15:30)
[2021-08-13] MEDS ORDERED: Albuterol/Ipratropium 3.0-0.5 MG/3 ML Neb Soln NEB ONE (16:15)
--- NOTE | 2021-08-13 16:17 | EDM.PDOC ---
ED HPI GENERAL MEDICAL PROBLEM - General Chief Complaint: Respiratory Problem Stated Complaint: RESPIRATORY ISSUES Time Seen by Provider: 08/13/21 15:29 Source of Information: Reports: Patient, RN Notes Reviewed History Limitations: Reports: No Limitations - History of Present Illness INITIAL COMMENTS - FREE TEXT/NARRATIVE: 70-year-old gentleman presents emergency department today complaint of ongoing shortness of breath, he states has been ill for the last couple of days he has been vaccinated for COVID has not had any fevers states he is noticed himself been wheezing over the last couple days no chest pain Generalized Pain Score (Numeric/FACES): 7 - Related Data Allergies Allergy/AdvReac Type Severity Reaction Status Date / Time No Known Allergies Allergy Verified 08/13/21 14:28 Home Meds: Home Meds Furosemide 40 mg PO BID 02/03/15 [History] Metoprolol Succinate [Toprol XL] 75 mg PO DAILY 02/03/15 [History] Tamsulosin [Flomax] 0.4 mg PO DAILY 02/03/15 [History] Warfarin [Coumadin] 5 mg PO ASDIRECTED 02/03/15 [History] dilTIAZem HCl [Diltiazem 24Hr Cd] 120 mg PO DAILY #30 cap.er.24h 07/14/17 [Rx] Irbesartan [Avapro] 300 mg PO DAILY 01/08/21 [History] Sildenafil Citrate [Viagra] 100 mg PO ASDIRECTED 01/08/21 [History] Spironolactone [Aldactone] 25 mg PO DAILY 01/08/21 [History] hydroCHLOROthiazide [Hydrochlorothiazide] 12.5 mg PO .MWF 01/08/21 [History] Doxycycline [Vibramycin] 100 mg PO BID 08/13/21 [History] Rosuvastatin [Crestor] 10 mg PO BEDTIME 08/13/21 [History] allopurinoL [Zyloprim] 100 mg PO DAILY 08/13/21 [History] predniSONE [Prednisone] 20 mg PO DAILY 08/13/21 [History] Past Medical History HEENT History: Reports: Impaired Vision Other HEENT History: wears glasses Cardiovascular History: Reports: Afib, High Cholesterol, Hypertension, SOB on Exertion Other Cardiovascular History: Chronic systolic heart failure, peripheral edema Respiratory History: Reports: Sleep Apnea Other Respiratory History: CPAP Gastrointestinal History: Reports: Colon Polyp Genitourinary History: Reports: BPH Musculoskeletal History: Reports: Fracture, Osteoarthritis Endocrine/Metabolic History: Reports: Obesity/BMI 30+, Other (See Below) Other Endocrine/Metabolic History: prediabetic Hematologic History: Reports: Other (See Below) Other Hematologic History: vitamin e deficiency Immunologic History: Reports: None Oncologic (Cancer) History: Reports: None Dermatologic History: Reports: None - Infectious Disease History Infectious Disease History: Reports: Chicken Pox, Measles, Mumps - Past Surgical History HEENT Surgical History: Reports: Adenoidectomy, Oral Surgery, Tonsillectomy Other HEENT Surgeries/Procedures: wisdom teeth Cardiovascular Surgical History: Reports: Other (See Below) Other Cardiovascular Surgeries/Procedures: Ablation 01/08/2015 GI Surgical History: Reports: Colonoscopy Social & Family History - Family History Family Medical History: No Pertinent Family History Cardiac: Reports: CAD - Tobacco Use Tobacco Use Status *Q: Never Tobacco User - Caffeine Use Caffeine Use: Reports: Coffee - Recreational Drug Use Recreational Drug Use: No ED ROS GENERAL - Review of Systems Review Of Systems: See Below Constitutional: Reports: Weakness. Denies: Fever HEENT: Reports: No Symptoms Respiratory: Reports: Shortness of Breath, Wheezing, Cough Cardiovascular: Reports: Dyspnea on Exertion GI/Abdominal: Reports: No Symptoms ED EXAM, GENERAL - Physical Exam Exam: See Below Exam Limited By: No Limitations General Appearance: Alert, WD/WN, No Apparent Distress Respiratory/Chest: No Respiratory Distress, Chest Non-Tender, Decreased Breath Sounds, Wheezing Cardiovascular: Regular Rate, Rhythm, No Murmur GI/Abdominal: Soft, Non-Tender Course - Vital Signs Last Recorded V/S: Last Vital Signs Temp 97.5 F 08/13/21 14:26 Pulse 79 08/13/21 18:24 Resp 16 08/13/21 18:24 BP 100/54 L 08/13/21 18:24 Pulse Ox 94 L 08/13/21 18:24 - Orders/Labs/Meds Orders: Active Orders 24 hr Category Date Time Status RT Aerosol Therapy [RC] ASDIRECTED Care 08/13/21 16:15 Active Chest 1V Frontal [CR] Urgent Exams 08/13/21 16:31 Taken Isolation [COMM] Stat Oth 08/13/21 14:07 Ordered Labs: Laboratory Tests 08/13/21 08/13/21 08/13/21 Range/Units 14:25 15:50 15:50 WBC 12.4 H (3.2-11.0) K/uL RBC 3.97 L (4.14-5.76) M/uL Hgb 12.7 L (12.9-16.9) Hct 38.5 (38.4-49.7) % MCV 97.0 (81.4-99.0) fL MCH 32.0 (31.6-35.5) pg MCHC 33.0 (31.6-35.5) g/dL Plt Count 220 (130-375) K/uL Immature Gran % (Auto) 0.9 H (0.0-0.7) % Neut % (Auto) 82.1 H (36-66) % Lymph % (Auto) 8.1 L (24-44) % Giles % (Auto) 8.2 H (2-6) % Eos % (Auto) 0.3 L (2-4) % Baso % (Auto) 0.4 (0-1) % Neut # (Auto) 10.20 H (1.0-7.6) K/uL Lymph # (Auto) 1.00 (0.8-3.3) K/uL Giles # (Auto) 1.02 H (0.20-0.90) K/uL Eos # (Auto) 0.04 (0.00-0.40) K/uL Baso # (Auto) 0.05 (0.00-0.10) K/uL Immature Gran # (Auto) 0.11 (0.00-0.23) K/uL Sodium 136 L (140-148) mmol/L Potassium 5.0 (3.6-5.2) mmol/L Chloride 101 (100-108) mmol/L Carbon Dioxide 22 (21-32) mmol/L Anion Gap 18.0 H (5.0-14.0) mmol/L BUN 84 H* D (7-18) mg/dL Creatinine 2.6 H D (0.8-1.3) mg/dL Est Cr Clr Drug Dosing 24.36 mL/min Estimated GFR (MDRD) 24 L (>60) Glucose 131 H (74-106) mg/dL Lactic Acid (0.4-2.0) mmol/L Calcium 9.0 (8.5-10.1) mg/dL Total Bilirubin 1.2 H (0.2-1.0) mg/dL AST 44 H (15-37) U/L ALT 70 (12-78) U/L Alkaline Phosphatase 58 (46-116) U/L C-Reactive Protein (0.0-0.3) mg/dL NT-Pro-B Natriuret Pep (5-125) pg/mL Total Protein 6.5 (6.4-8.2) g/dL Albumin 3.3 L (3.4-5.0) g/dL Globulin 3.2 (2.3-3.5) g/dL Albumin/Globulin Ratio 1.0 L (1.2-2.2) Influenza Type A RNA Negative (NEGATIVE) RSV RNA (INAAT) Positive H (NEGATIVE) Influenza Type B RNA Negative (NEGATIVE) SARS-CoV-2 RNA (NIKO) Negative (NEGATIVE) 08/13/21 08/13/21 08/13/21 Range/Units 15:50 15:50 17:00 WBC (3.2-11.0) K/uL RBC (4.14-5.76) M/uL Hgb (12.9-16.9) Hct (38.4-49.7) % MCV (81.4-99.0) fL MCH (31.6-35.5) pg MCHC (31.6-35.5) g/dL Plt Count (130-375) K/uL Immature Gran % (Auto) (0.0-0.7) % Neut % (Auto) (36-66) % Lymph % (Auto) (24-44) % Giles % (Auto) (2-6) % Eos % (Auto) (2-4) % Baso % (Auto) (0-1) % Neut # (Auto) (1.0-7.6) K/uL Lymph # (Auto) (0.8-3.3) K/uL Giles # (Auto) (0.20-0.90) K/uL Eos # (Auto) (0.00-0.40) K/uL Baso # (Auto) (0.00-0.10) K/uL Immature Gran # (Auto) (0.00-0.23) K/uL Sodium (140-148) mmol/L Potassium (3.6-5.2) mmol/L Chloride (100-108) mmol/L Carbon Dioxide (21-32) mmol/L Anion Gap (5.0-14.0) mmol/L BUN (7-18) mg/dL Creatinine (0.8-1.3) mg/dL Est Cr Clr Drug Dosing mL/min Estimated GFR (MDRD) (>60) Glucose (74-106) mg/dL Lactic Acid 2.9 H (0.4-2.0) mmol/L Calcium (8.5-10.1) mg/dL Total Bilirubin (0.2-1.0) mg/dL AST (15-37) U/L ALT (12-78) U/L Alkaline Phosphatase (46-116) U/L C-Reactive Protein 0.34 H (0.0-0.3) mg/dL NT-Pro-B Natriuret Pep 1943 H (5-125) pg/mL Total Protein (6.4-8.2) g/dL Albumin (3.4-5.0) g/dL Globulin (2.3-3.5) g/dL Albumin/Globulin Ratio (1.2-2.2) Influenza Type A RNA (NEGATIVE) RSV RNA (INAAT) (NEGATIVE) Influenza Type B RNA (NEGATIVE) SARS-CoV-2 RNA (NIKO) (NEGATIVE) Meds: Medications Discontinued Medications Generic Name Dose Route Start Last Admin Trade Name Freq PRN Reason Stop Dose Admin Albuterol/Ipratropium 3 ml 08/13/21 16:15 08/13/21 17:10 Albuterol/Ipratropium 3.0-0.5 Mg/3 Ml Neb Soln NEB 08/13/21 16:16 3 ml ONETIME ONE Administration Lactated Ringer's 1,000 mls @ 999 mls/hr 08/13/21 15:30 08/13/21 17:09 Ringers, Lactated IV 08/13/21 16:30 999 mls/hr BOLUS ONE Administration Methylprednisolone Sodium Succinate 40 mg 08/13/21 17:39 08/13/21 17:50 Methylprednisolone Sodium Succinate 40 Mg/1 Ml Sdv IVPUSH 08/13/21 17:40 40 mg ONETIME ONE Administration Departure - Departure Time of Disposition: 18:37 Disposition: Home, Self-Care 01 Condition: Fair Clinical Impression: Adrenal crisis Steroid withdrawal syndrome Qualifiers: Complication of substance-induced condition: uncomplicated Qualified Code(s): 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 Leal about your steroid use. Call or return to the emergency department worsening of symptoms Sepsis Event Note (ED) - Evaluation Sepsis Screening Result: No Definite Risk - Focused Exam Vital Signs: Vital Signs Temp Pulse Resp BP BP Pulse Ox 08/13/21 18:24 79 16 100/54 L 94 L 08/13/21 17:14 80 63/40 L 96 08/13/21 14:26 97.5 F 84 24 H 67/44 L 95/51 L 97 08/13/21 14:20 97.5 F 84 24 H 67/44 L 95/51 L 97 - My Orders Last 24 Hours: My Active Orders 08/13/21 14:07 Isolation [COMM] Stat 08/13/21 16:15 RT Aerosol Therapy [RC] ASDIRECTED 08/13/21 16:31 Chest 1V Frontal [CR] Urgent - Assessment/Plan Last 24 Hours: My Active Orders 08/13/21 14:07 Isolation [COMM] Stat 08/13/21 16:15 RT Aerosol Therapy [RC] ASDIRECTED 08/13/21 16:31 Chest 1V Frontal [CR] Urgent Plan: Assessment Acuity = acute Site and laterality = adrenal crisis with steroid withdrawal syndrome Etiology = sudden stopping of his steroids that he has been on for couple years was on 20 mg once a day had weaned himself down to 10 mg for couple of days but then suddenly stopped Manifestations = hypotension dyspnea Location of injury = Home Lab values = WBC elevated 12.4 consistent leukocytosis BUN elevated 84 with creatinine 2.4 consistent with acute renal failure stage G3 B lactic acid elevat ed 2.9 consistent lactic acidosis total bilirubin elevated 1.2 consistent hyperbilirubinemia CRP slightly elevated 0.34 BNP 1943 consistent with fluid overload type pattern positive for RSV negative for COVID negative for influenza chest x-ray consistent with fluid overload type pattern Plan He was given 40 mg Solu-Medrol IV in combination with DuoNeb inhaler after couple hours in the emergency department he felt significantly better plan is to go back on steroids he is going to do 40 mg once a day for the next 5 days then decrease to 20 mg next 5 days at which time he is can follow-up with his primary care and talk about further steroid use. He will continue with his regular medications This note was dictated using [employer] voice recognition software please call with any questions on syntax or grammar.
[2021-08-13] MEDS ORDERED: methylPREDNISolone Sodium Succinate 40 MG/1 ML SDV IVPUSH ONE (17:39)
[2021-08-13 18:25] VITALS: BP 100/54; PULSE 79
--- NOTE | 2021-08-16 09:20 | CR ---
CHEST: Portable 08/13/2021 at 4:46 PM CLINICAL HISTORY:SOB COMPARISON:None FINDINGS: Heart size is normal. There is some mild bony vascular cephalization. No infiltrates are seen. There are atherosclerotic changes in the aorta. Impression: Mild pulmonary vascular cephalization may represent some pulmonary venous hypertension.
== END 2021-08-13 19:01 | disposition home or self-care (01) ==
LOC: JP.ED 14:00
DX: E27.2 Addisonian crisis (principal); F19.230 Other psychoactive substance dependence with withdrawal, uncomplicated; E78.00 Pure hypercholesterolemia, unspecified; I11.0 Hypertensive heart disease with heart failure; I50.22 Chronic systolic (congestive) heart failure; E66.9 Obesity, unspecified; I48.91 Unspecified atrial fibrillation; Z79.899 Other long term (current) drug therapy; Z79.01 Long term (current) use of anticoagulants; Z20.822 Contact with and (suspected) exposure to COVID-19; Z68.42 Body mass index [BMI] 45.0-49.9, adult
CPT/HCPCS: 0241U; 36415; 71045; 80053; 83605; 83880; 85025; 86140; 94640; 96374; 99285; J2920; J7120; J7620-GY

== ENCOUNTER 2021-09-21 10:57 | Emergency (ER) | payer MEDICARE, BC ==
[2021-09-21] MEDS ORDERED: Sodium Chloride 0.9% 500 ML IV ONE (11:21)
[2021-09-21] MEDS ORDERED: Propofol 200 MG/20 ML SDV ONE (11:58)
[2021-09-21 12:32] LABS: CORONAVIRUS COVID-19 NAA NEGATIVE (NEGATIVE)
[2021-09-21] MEDS ORDERED: Clindamycin Phosphate 900 MG in Sodium Chloride 0.9% 100 ML IV ONE ×2 (12:49→13:45)
[2021-09-21] MEDS ORDERED: Levofloxacin/Dextrose 5%-Water 750 MG in Premix Bag 1 BAG IV ONE (12:51)
[2021-09-21] MEDS ORDERED: Sodium Chloride 0.9% 10 ML SDV IV ONE (12:54)
[2021-09-21] MEDS ORDERED: Hydrocortisone Sodium Succinate 100 MG/2 ML SDV IVPUSH ONE (12:57)
[2021-09-21] MEDS ORDERED: Norepinephrine Bit/D5W Premix 4 MG in Premix Bag 1 BAG IV SCH (13:50)
[2021-09-21 14:50] VITALS: BP 104/55; PULSE 83
== END 2021-09-21 15:46 ==
LOC: JP.ED 10:57
DX: A41.9 Sepsis, unspecified organism (principal); I48.91 Unspecified atrial fibrillation; I95.9 Hypotension, unspecified; N17.9 Acute kidney failure, unspecified; E78.00 Pure hypercholesterolemia, unspecified; I11.0 Hypertensive heart disease with heart failure; I50.20 Unspecified systolic (congestive) heart failure; G47.33 Obstructive sleep apnea (adult) (pediatric); E83.42 Hypomagnesemia; M71.522 Other bursitis, not elsewhere classified, left elbow; R73.9 Hyperglycemia, unspecified; M25.50 Pain in unspecified joint; E66.01 Morbid (severe) obesity due to excess calories; Z68.41 Body mass index [BMI] 40.0-44.9, adult; Z20.822 Contact with and (suspected) exposure to COVID-19; Z79.899 Other long term (current) drug therapy; Z79.01 Long term (current) use of anticoagulants
CPT/HCPCS: 0241U; 36415; 71045; 80048; 80076; 83605; 83735; 83880; 84439; 84443; 84484; 85025; 85610; 87040; 87186; 92960; 93005; 99285; J1720; J1956; J2704; J3490; J7040; 93010

== ENCOUNTER 2025-02-05 22:09 | Emergency (ER) | payer MEDICARE, BC ==
[2025-02-05 22:28] LABS: BASOPHILS ABSOLUTE AUTO 0.03 K/uL (0.00-0.10); BASOPHILS PERCENT AUTO 0.2 % (0.1-1.3); EOSINOPHILS PERCENT AUTO 0.1 % (0.0-5.4); IMMATURE GRAN ABSOLUTE AUTO 0.05 K/uL (0.00-0.23); IMMATURE GRAN PERCENT AUTO 0.4 % (0.0-0.7); LYMPHOCYTES ABSOLUTE AUTO 0.15 K/uL (0.8-3.3); LYMPHOCYTES PERCENT AUTO 1.2 % (11.4-47.7); MONOCYTES ABSOLUTE AUTO 0.41 K/uL (0.20-0.90); MONOCYTES PERCENT AUTO 3.4 % (3.3-12.6); NEUTROPHILS ABSOLUTE AUTO 11.38 K/uL (1.0-7.6); NEUTROPHILS PERCENT AUTO 94.7 % (40.0-78.1); PLATELET COUNT,PLT 199 K/uL (130-375); RED BLOOD CELL COUNT 3.84 M/uL (4.14-5.76); WHITE BLOOD CELL COUNT,WBC 12.0 K/uL (3.2-11.0)
[2025-02-05 22:33] LABS: EOSINOPHILS ABSOLUTE AUTO 0.01 K/uL (0.00-0.40)
[2025-02-05 22:48] LABS: INR 2.6
[2025-02-05 22:54] LABS: A/G RATIO 0.9 (1.2-2.2); ALANINE AMINOTRANSFERASE,ALT 188 U/L (12-78); ASPARTATE AMNIOTRANSFERASE,AST 314 U/L (15-37); BILIRUBIN TOTAL 3.8 mg/dL (0.2-1.0); BLOOD UREA NITROGEN,BUN 38 mg/dL (7-18); CARBON DIOXIDE,CO2 29 mmol/L (21-32); CHLORIDE,CL 100 mmol/L (100-108); CREATININE 1.9 mg/dL (0.8-1.3); EST CRCL DRUG DOSING (CG) 31.41 mL/min; ESTIMATED GFR 36 mL/min (>60); GLUCOSE RANDOM 174 mg/dL (74-106); POTASSIUM,K 4.2 mmol/L (3.6-5.2); PROTEIN TOTAL,TP 6.8 g/dL (6.4-8.2); SODIUM,NA 140 mmol/L (140-148); TROPONIN I HIGH SENSITIVITY 47.9 pg/mL (<=60.3)
[2025-02-05] MEDS ORDERED: Propofol 200 MG/20 ML SDV ONE (23:19)
[2025-02-06] MEDS: Diltiazem 25 MG/5 ML SDV IVPUSH ONE ×2 (00:11→02:58)
[2025-02-06] MEDS: Metoprolol Tartrate 5 MG/5 ML SDV IVPUSH ONE (01:42)
[2025-02-06 02:22] LABS: BASE EXCESS VENOUS 3.4 mm/L; BICARBONATE,VENOUS 28.0 mmol/L; O2 SATURATION VENOUS 62.7; OXYHEMOGLOBIN 60.4 %; PCO2 VENOUS 44.6 mm/Hg; PH,VENOUS 7.414 (7.350-7.450); TOTAL HEMOGLOBIN 12.9 g/dL (13.5-18.0)
[2025-02-06 02:29] LABS: APPEARANCE,URINE CLEAR (CLEAR); GLUCOSE,URINE 100 mg/dL (NEGATIVE); OCCULT BLOOD,URINE TRACE-LYSED (NEGATIVE)
[2025-02-06 02:35] LABS: PO2 VENOUS 34.0 mm/Hg
[2025-02-06 02:37] LABS: EPITHELIAL CELLS,URINE RARE
[2025-02-06 02:47] LABS: LACTIC ACID 2.8 mmol/L (0.4-2.0)
[2025-02-06 08:21] VITALS: BP 92/46; PULSE 90
== END 2025-02-06 09:20 | disposition other institution (70) ==
LOC: JP.ED 22:09
DX: A41.9 Sepsis, unspecified organism (principal); J18.9 Pneumonia, unspecified organism; I11.0 Hypertensive heart disease with heart failure; E66.9 Obesity, unspecified; E78.00 Pure hypercholesterolemia, unspecified; I50.22 Chronic systolic (congestive) heart failure; Z79.899 Other long term (current) drug therapy
CPT/HCPCS: 00410; 36415; 71250; 74176; 80053; 81001; 82803; 83605; 84484; 85025; 85610; 87040; 87077; 87186; 92960; 93005; 93010; 94640; 96361; 96365; 96366; 96367; 96375; 96376; 99284; 99285; A9270; J0696; J2704; J3370; J3490; J7030; J7040; U0002